=== PATIENT | female | born 2000 | race Caucasian/White ===

== ENCOUNTER 2024-05-30 15:40 | Emergency (ER) | payer SELFPAY ==
[~2024-05-30] VITALS: Ht 165.1 cm; Wt 58.4 kg
[2024-05-30 15:41] VITALS: TEMP 99.7
[2024-05-30] MEDS: ketorolac trometh 30MG/ML vial 30 MG/ML VIAL IM STA (16:12)
[2024-05-30 16:15] VITALS: BP 102/66; PULSE 67; RESP 18; O2SAT 100
== END 2024-05-30 16:35 | disposition home or self-care (01) ==
LOC: ER 15:41
DX: S29.012A Strain of muscle and tendon of back wall of thorax, initial encounter (principal); R11.10 Vomiting, unspecified; X58.XXXA Exposure to other specified factors, initial encounter; Y93.89 Activity, other specified; Y92.89 Other specified places as the place of occurrence of the external cause; Y99.8 Other external cause status
CPT/HCPCS: 71045; 96372; 99283; J1885

== ENCOUNTER 2025-02-18 05:09 | Emergency (ER) | payer BC ==
[~2025-02-18] VITALS: Ht 165.1 cm; Wt 60.6 kg
[2025-02-18 05:16] VITALS: BP 107/77; PULSE 56; RESP 16; O2SAT 99
--- NOTE | 2025-02-18 05:39 | Physician Documentation ---
HPI ~ General Chief Complaint: Tooth Problem Stated Complaint: DENTAL PAIN Time Seen by MD: 05:39 Primary Medical Doctor: NONE History of Present Illness HPI Comment Patient presents to the emergency room with dental pain that has been going on for the past six months. Worse recently. Taken ibuprofen for the pain. She has yet to follow up with a dentist Medication Reconciliation Allergies: Coded Allergies: No Known Allergies (Unverified , 02/18/25) Past Medical History Past Medical History: No Pertinent History Past Surgical History: no surgical history Lives In: Home Review of Systems ROS All review of systems negative except as per HPI Physical Exam Vital Signs: Temperature: 98.9, Source: Temporal, Heart Rate: 56, Respiratory Rate: 16, BP: 107/77, Pulse Oximetry: 99, Weight: 60.600 Oxygen Flow Rate: 0 Physical Exam General: Patient is awake, alert, oriented x4 in no acute distress and well appearing.~ Head: Normocephalic and atraumatic. Eyes: Conjunctival normal. EOMI. PERRL. ENT: Mucous membranes moist. No appreciable abscess Neck: Supple, trachea is midline. Chest: Clear to auscultation bilaterally without rales, rhonchi, or wheezes. There is no accessory muscle use or retractions. Cardiac: RRR without murmurs, gallops, or rubs. Progress Results/Orders Results/Orders Vital Signs 02/18/25 05:16 Temp 98.9 Pulse 56 Resp 16 B/P (MAP) 107/77 Pulse Ox 99 O2 Flow Rate 0 Medical Decision Making Findings Patient presents to the emergency room with chief complaint is dental pain as per HPI. Differentials include but are not limited to dental cavities, dental abscess, herpangina, referred pain. No appreciable abscess on physical exam we will treat patient empirically with antibiotics with instructions to follow up with a dentist. Departure Disposition: HOME / SELF CARE / HOMELESS Impression: Primary Impression: Toothache Condition: Stable Discharge Instructions: Dental Pain Referrals: NO PRIMARY CARE PROVIDER (PCP) Prescriptions Hydrocodone Bit/Acetaminophen 5/325 MG ([place] 5/325 MG) 5 Mg/325 Mg Tablet 1 TAB PO Q4-6 hours PRN for pain, #12 TAB Prov: SEB BINGHAM MD 02/18/25 Amoxicillin Trihydrate* (Amoxicillin*) 500 Mg Capsule 1 CAP PO Q8H for 10 Days, #30 CAP Prov: SEB BINGHAM MD 02/18/25 Education Educated: Patient Educated regarding: diagnosis, treatment, need for follow up Signature Scribe Signature: No scribe Attestation: The note accurately reflects work and decisions made by me.Seb Bingham MD 02/18/25 05:44 SEB BINGHAM MD Feb 18, 2025 05:39
[2025-02-18] MEDS ORDERED: HYDR-3965 PO (05:44)
[2025-02-18] MEDS ORDERED: AMOX500C2 PO (05:44)
[2025-02-18 05:54] VITALS: TEMP 98.9
== END 2025-02-18 05:57 | disposition home or self-care (01) ==
LOC: ER 05:09
DX: K08.89 Other specified disorders of teeth and supporting structures (principal)
CPT/HCPCS: 99283